=== PATIENT | male | born 1970 | race Two or more races ===

== ENCOUNTER 2017-07-02 16:37 | Emergency (ER) | payer OTHER ==
[~2017-07-02] VITALS: Ht 167.6 cm; Wt 66.7 kg
[~2017-07-02 16:37] MED LIST: AMOX1TAB12 PO; CORTISPORIN EAR10 M1 OT
[2017-07-02] MEDS ORDERED: BENADRYL25 MG PO (20:33)
[2017-07-02] MEDS ORDERED: MEDROLPACK PO (20:33)
[2017-07-02] MEDS ORDERED: ZYRTEC10 M3 PO (20:33)
== END 2017-07-02 20:55 | disposition home or self-care (01) ==
LOC: ER 16:37
DX: R21 Rash and other nonspecific skin eruption (principal)

== ENCOUNTER 2018-05-03 11:59 | Outpatient (CLI) | payer OTHER ==
[~2018-05-03 11:59] MED LIST changes: +BENADRYL25 MG PO; +MEDROLPACK PO; +ZYRTEC10 M3 PO
== END 2018-05-03 12:06 | disposition home or self-care (01) ==
LOC: LAB 11:59
DX: H61.322 Acquired stenosis of left external ear canal secondary to inflammation and infection (principal)

== ENCOUNTER 2018-08-13 04:39 | Emergency (ER) | payer OTHER ==
[~2018-08-13] VITALS: Ht 167.6 cm; Wt 67.1 kg
== END 2018-08-13 07:53 | disposition home or self-care (01) ==
LOC: ER 04:39
DX: N20.1 Calculus of ureter (principal); R10.32 Left lower quadrant pain

== ENCOUNTER 2024-02-20 15:47 | Emergency (ER) | payer OTHER ==
[~2024-02-20] VITALS: Ht 167.6 cm; Wt 66.7 kg
[2024-02-20] MEDS ORDERED: TAMSULOSIN HCL 0.4 MG CAP PO ONE (16:45)
[2024-02-20] MEDS ORDERED: ONDANSETRON HCL 2 MG/ML VIAL IV ONE (16:45)
[2024-02-20] MEDS ORDERED: KETOROLAC TROMETHAMINE 30 MG VIAL IV ONE (16:45)
[2024-02-20] MEDS ORDERED: 0.9 % SODIUM CHLORIDE 1,000 ML IV SCH (16:45)
[2024-02-20 17:12] LABS: HEMATOCRIT 39.5 % (39.0-48.0); HEMOGLOBIN 13.3 g/dL (13-16.00); MEAN CORPUSCULAR HGB CONC 33.7 g/dl (32.0-36.0); PLATELET COUNT 275 K/uL (150-450); RED BLOOD COUNT 4.16 M/uL (4.00-6.00); RED CELL DISTRIBUTION WIDTH 14.2 % (11.5-14.5)
[2024-02-20 17:36] LABS: PH,URINE 5.5 (5.0-8.0); URINE APPEARANCE Clear; URINE BILIRRUBIN Small (NEGATIVE); URINE BLOOD Negative; URINE COLOR Orange; URINE GLUCOSE Negative (NEGATIVE); URINE KETONE Negative (NEGATIVE); URINE LEUKOCYTE Small; URINE NITRATE Positive; URINE PROTEIN Negative (NEGATIVE)
[2024-02-20 17:41] LABS: URINE RBC 2.2 uL (0.0-20.8)
[2024-02-20 17:51] LABS: ALBUMIN 3.6 gm/dL (3.4-5.0); BILIRUBIN TOTAL 0.77 mg/dL (0.3-1.2); CALCIUM 9.1 mg/dL (8.5-10.1); CREATININE SERUM 1.02 mg/dL (0.70-1.30); GFR 76.4; GLOBULINA 3.6 G/DL (2.4-3.5); POTASSIUM 4.07 mEq/L (3.5-5.1); TOTAL PROTEIN 7.2 gm/dL (6.4-8.2)
[2024-02-20 17:56] LABS: URINE BACTERIA 2.5 uL (0.0-1933); URINE EPITHELIAL CELLS 0.6 uL (0.0-38.8); URINE WBC 0.7 uL (0.0-23.2)
[2024-02-20] MEDS ORDERED: CEFTRIAXONE SODIUM 2,000 MG VIAL IV ONE (20:45)
[2024-02-20] MEDS ORDERED: BACTRIM DS TAB1 EACH PO (21:27)
== END 2024-02-20 21:41 | disposition home or self-care (01) ==
LOC: ER 15:48
PROVIDERS: General Practice
DX: N39.0 Urinary tract infection, site not specified (principal); N20.1 Calculus of ureter; Z87.442 Personal history of urinary calculi